=== PATIENT | female | born 1975 | race Caucasian/White ===

== ENCOUNTER 2016-09-01 06:05 | Day surgery (SDC) | payer OTHER ==
[~2016-09-01 06:05] MED LIST: DOCU-27 PO; ETHI1TAB5 PO; FURO-69 PO; IBUP-1060 PO; MULT-460 PO; NORE-81 PO; OXYC-323 PO
[2016-09-01] MEDS: IV RINGERS,LACTATED 1000ML 1,000 ML IV SCH ×2 (06:52→08:36)
[2016-09-01] MEDS ORDERED: MIDAZOLAM HCL/PF 2 MG/2 ML VIAL. ONE (06:53)
[2016-09-01] MEDS ORDERED: FAMOTIDINE 20 MG/2 ML VIAL ONE (06:53)
[2016-09-01] MEDS ORDERED: LIDOCAINE 2% PF Vial for OR 5 ML VIAL. ONE (06:53)
[2016-09-01] MEDS ORDERED: DEXAMETHASONE SOD PHOS 20 MG/5 ML VIAL. ONE (06:53)
[2016-09-01] MEDS ORDERED: PROPOFOL 20 ML IV ONE (06:53)
[2016-09-01] MEDS ORDERED: ONDANSETRON PF 4 MG/2 ML VIAL. ONE (06:53)
[2016-09-01] MEDS ORDERED: fentaNYL PF VIAL 100 MCG/2 ML VIAL ONE (06:54)
[2016-09-01] MEDS ORDERED: ROCURONIUM 50 MG/5 ML VIAL. ONE (06:54)
[2016-09-01] MEDS ORDERED: GLYCOPYRROLATE 1 MG/5 ML VIAL. ONE (06:58)
[2016-09-01] MEDS ORDERED: MORPHINE SULFATE 2 MG/ML DISP.SYRIN. IV PRN (07:00)
[2016-09-01] MEDS ORDERED: PROCHLORPERAZINE 10 MG/2 ML VIAL. IV PRN (07:00)
[2016-09-01] MEDS ORDERED: fentaNYL PF VIAL 100 MCG/2 ML VIAL IV PRN ×2 (07:00)
[2016-09-01] MEDS ORDERED: LIDOCAINE 1% 1 ML SYRINGE. ID PRN (07:00)
[2016-09-01] MEDS ORDERED: HYDROmorphone 2 MG/ML VIAL IV PRN (07:00)
[2016-09-01] MEDS ORDERED: ONDANSETRON PF 4 MG/2 ML VIAL. IV PRN (07:00)
[2016-09-01] MEDS ORDERED: SCOPOLAMINE 1.5MG PATCH. TD ONE ×2 (07:03→07:15)
[2016-09-01] MEDS ORDERED: BUPIVACAINE-EPI 0.25%-1:200000 50 ML VIAL. ONE (07:05)
[2016-09-01] MEDS ORDERED: diphenhydrAMINE 50 MG/ML VIAL ONE (07:05)
[2016-09-01 07:07] LABS: NEG OBC UR NEG; POS OBC UR POS
[2016-09-01] MEDS ORDERED: BUPIVACAINE-EPI 0.25%-1:200000 MPF 30 ML VIAL. ONE (07:25)
[2016-09-01] MEDS ORDERED: KETOROLAC 60 MG/2 ML INJ FOR OR. ONE (07:59)
[2016-09-01] MEDS ORDERED: SEVOFLURANE 16 TO 30 MINUTES. IH ONE (08:00)
--- NOTE | 2016-09-01 08:10 | DISCH ---
DISCHARGE INSTRUCTIONS Condition on Discharge Condition on Discharge: Stable Activity After Discharge Activity Instructions for Disc: Activity as tolerated Lifting Instructions after Dis: No heavy lifting Driving Instructions after Dis: Do not drive today Diet after Discharge Diet after Discharge: Regular Contacting the DRKayleigh after DC Call your doctor for: Concerns you may have Follow-Up Follow up with: Dr. Macario in 1 week. ADELINA MACARIO Jr, MD September 01, 2016 08:10
--- NOTE | 2016-09-01 08:10 | PDOC ---
BRIEF OPERATIVE NOTE Pre-Op Diagnosis Sterilization Post-Op Diagnosis SAme Procedure Performed [facility] Surgeon Dr. Macario Anesthesia Type: General Blood Loss 5 ml Specimens Obtained none Findings nml size uterus, nml fallopian tubes and ovaries ernie. Complications none Additional Remarks ptADELINA Cruz Jr, MD September 01, 2016 08:10
[2016-09-01] MEDS ORDERED: OXYC-323 PO (08:17)
[2016-09-01] MEDS ORDERED: oxyCODONE/APAP 5/325 1 TAB TABLET PO ONE ×2 (09:15→10:10)
--- NOTE | 2016-09-01 09:50 | OP ---
DATE OF SURGERY: 09/01/2016 PREOPERATIVE DIAGNOSIS: Sterilization. POSTOPERATIVE DIAGNOSIS: Sterilization. PROCEDURE: Laparoscopic BTL with Filshie clips. SURGEON: Tacos Macario MD ANESTHESIA: GETA. ESTIMATED BLOOD LOSS: Less than 5 mL. COMPLICATIONS: None. FINDINGS: Normal size uterus. Normal fallopian tubes and ovaries bilaterally. SUMMARY: A 41-year-old female who desired permanent sterilization. She was counseled on risks, benefits and expectations of bilateral tubal ligation via Filshie clips. She was also counseled on the failure rate and voiced clear understanding. The patient was counseled on risks, benefits and expectations and desired to proceed. DESCRIPTION OF PROCEDURE: The patient was taken to surgery suite and placed in dorsal lithotomy position. She was prepped with ChloraPrep for abdominal prep and Betadine for vaginal prep. After adequate anesthesia, bivalve speculum was placed vaginally. Anterior lip of the cervix grasped with a single tooth tenaculum. Uterine acorn manipulator was then placed. The bivalve speculum was removed. Attention was now placed on abdomen. Small transverse skin incision was made just below the umbilicus with the scalpel. The Veress needle was then placed through the infraumbilical incision site. The abdomen was allowed to insufflate up to 1-1/2 liters of CO2 gas. The Veress needle was then removed, 5-mm trocar was placed. The scope was positioned. The uterus appeared normal size. Fallopian tubes and ovaries appeared normal bilaterally. A second incision was made in the left lower quadrant with a scalpel in which 8 mm trocar was placed. The Filshie clip applicator was used to apply Filshie clip to the left fallopian tube in its isthmus region totally occluding the fallopian tube. Same process took place with the right fallopian tube. The trocars were then removed under direct visualization. The abdomen was allowed to deflate as much as possible along with mechanical manipulation. The 2 skin incision was reapproximated using 4-0 Vicryl suture in a subcuticular manner. A 0.25% Marcaine with epinephrine was injected at each incision site. Uterine acorn manipulator and single tooth tenaculum were removed. The patient tolerated the procedure well and was taken to recovery room in stable condition. Sponge and needle counts were correct x 3. TACOS MACARIO MD DR: ESPERANZA/david JOB#: [id number] / [id number]
[2016-09-01 10:00] VITALS: BP 101/65
== END 2016-09-01 10:27 | disposition home or self-care (01) ==
LOC: SURG 06:05
PROVIDERS: ATTEND Obstetrics & Gynecology
DX: Z30.2 Encounter for sterilization (principal); Z86.69 Personal history of other diseases of the nervous system and sense organs; M19.90 Unspecified osteoarthritis, unspecified site
CPT/HCPCS: 58671; 81025; J1100; J1200; J1885; J2250; J2405; J2704; J3010; J3490; S0028

== ENCOUNTER → 2017-06-20 | Outpatient (CLI) | payer OTHER | END | disposition home or self-care (01) | LOC: MAMMO 11:29 | DX: Z12.31 Encounter for screening mammogram for malignant neoplasm of breast (principal) | CPT/HCPCS: 77063; 77067 ==

== ENCOUNTER → 2017-07-06 | Outpatient (CLI) | payer OTHER | END | disposition home or self-care (01) | LOC: US 12:05 | DX: N63.10 Unspecified lump in the right breast, unspecified quadrant (principal) | CPT/HCPCS: 76641 ==

== ENCOUNTER 2017-09-14 07:54 | Day surgery (SDC) | payer OTHER ==
[~2017-09-14 07:54] MED LIST changes: -DOCU-27 PO; -ETHI1TAB5 PO; -FURO-69 PO; -IBUP-1060 PO; +LIDOCAINE 1% PF 2 ML VIAL. ID; +MORPHINE SULFATE 2 MG/ML DISP.SYRIN. IV; -MULT-460 PO; -NORE-81 PO; +ONDANSETRON PF 4 MG/2 ML VIAL. IV; -OXYC-323 PO; +fentaNYL PF VIAL 100 MCG/2 ML VIAL IV
[2017-09-14 08:27] LABS: ADD MAN DIFF? NO
[2017-09-14] MEDS: IV RINGERS,LACTATED 1000ML 1,000 ML IV (08:27)
[2017-09-14 08:34] LABS: BASO % 0 % (0-3); EOS # 0.1 x10^3/uL (0.0-0.7); EOS % 2 % (0-3); HEMATOCRIT 41.2 % (36.0-47.0); LYMPH # 0.9 x10^3/uL (1.0-4.8); LYMPH % 18 % (24-48); MEAN CORPUSCULAR HEMOGLOBIN 31 pg (25-35); MEAN CORPUSCULAR HGB CONC 34 g/dL (31-37); MEAN CORPUSCULAR VOLUME 92 fL (79-100); MONO # 0.5 x10^3/uL (0.0-1.1); MONO % 9 % (0-9); NEUT # 3.5 x10^3uL (1.8-7.7); NEUT % 71 % (31-73); PLATELET COUNT 175 x10^3/uL (140-400); RED CELL DISTRIBUTION WIDTH 12.4 % (11.5-14.5)
[2017-09-14 08:38] LABS: NEG OBC UR NEG; POS OBC UR POS; U PREG PATIENT NEGATIVE (NEG)
[2017-09-14 08:41] LABS: ANION GAP 11 (6-14); BLOOD UREA NITROGEN 19 mg/dL (7-20); CALCIUM 8.6 mg/dL (8.5-10.1); CARBON DIOXIDE 24 mmol/L (21-32); CHLORIDE 105 mmol/L (98-107); CREATININE 0.9 mg/dL (0.6-1.0); GLUCOSE 90 mg/dL (70-99); POTASSIUM 3.8 mmol/L (3.5-5.1); SODIUM 140 mmol/L (136-145)
[2017-09-14] MEDS: METHYLENE BLUE 1% 10 ML VIAL. IJ (09:20)
[2017-09-14] MEDS ORDERED: METHYLENE BLUE 1% 10 ML VIAL. (09:20)
[2017-09-14] MEDS: LIDOCAINE WITH 8.4% SOD BICARB 3 ML DISP.SYRIN. INJ (09:20)
[2017-09-14] MEDS ORDERED: ONDANSETRON PF 4 MG/2 ML VIAL. (09:43)
[2017-09-14] MEDS ORDERED: fentaNYL PF VIAL 100 MCG/2 ML VIAL ×2 (09:43→11:52)
[2017-09-14] MEDS ORDERED: PROPOFOL 20 ML IV (09:43)
[2017-09-14] MEDS ORDERED: MIDAZOLAM HCL/PF 2 MG/2 ML VIAL. (09:43)
[2017-09-14] MEDS ORDERED: LIDOCAINE 2% PF Vial for OR 5 ML VIAL. (09:43)
[2017-09-14] MEDS ORDERED: DEXAMETHASONE SOD PHOS 20 MG/5 ML VIAL. (09:43)
[2017-09-14] MEDS ORDERED: SEVOFLURANE 31 TO 60 MINUTES. IH (09:49)
[2017-09-14] MEDS ORDERED: GLYCOPYRROLATE 1 MG/5 ML VIAL. (10:52)
[2017-09-14] MEDS: SCOPOLAMINE 1.5MG PATCH. TD (11:47)
[2017-09-14] MEDS ORDERED: SEVOFLURANE 61 TO 120 MINUTES. IH (11:50)
[2017-09-14] MEDS ORDERED: PROCHLORPERAZINE 10 MG/2 ML VIAL. (11:52)
[2017-09-14] MEDS ORDERED: KETOROLAC 30 MG/ML INJ FOR OR. INJ (11:58)
[2017-09-14] MEDS: fentaNYL PF VIAL 100 MCG/2 ML VIAL IV ×2 (12:23→12:39)
[2017-09-14] MEDS: PROCHLORPERAZINE 10 MG/2 ML VIAL. IV (13:04)
== END 2017-09-14 13:40 | disposition home or self-care (01) ==
LOC: SURG 07:54
DX: N60.31 Fibrosclerosis of right breast (principal); G43.909 Migraine, unspecified, not intractable, without status migrainosus; M19.90 Unspecified osteoarthritis, unspecified site; Z98.890 Other specified postprocedural states; Z98.51 Tubal ligation status
CPT/HCPCS: 19125; 19281; 36415; 76098; 80048; 81025; 85025; 88305; A7015; J0690; J0780; J1100; J1885; J2001; J2250; J2405; J2704; J3010; J3490; J7120; Q9968

== ENCOUNTER → 2018-06-10 | Outpatient (CLI) | payer OTHER ==
[2017-09-14 13:30] VITALS: BP 96/51
[~2018-06-10] MED LIST changes: +DOCU-109 PO; +ETHI1TAB5 PO; +FURO-69 PO; +IBUP-1060 PO; -LIDOCAINE 1% PF 2 ML VIAL. ID; -MORPHINE SULFATE 2 MG/ML DISP.SYRIN. IV; +MULT-460 PO; +NORE-81 PO; -ONDANSETRON PF 4 MG/2 ML VIAL. IV; +OXYC1TAB15 PO; -fentaNYL PF VIAL 100 MCG/2 ML VIAL IV
[2018-06-11 08:46] LABS: CHOLESTEROL/HDL RATIO 3.1
[2018-06-11 08:52] LABS: FREE T4 0.93 ng/dL (0.76-1.46); THYROID STIM HORMONE (TSH) 1.167 uIU/mL (0.358-3.74)
== END | disposition home or self-care (01) ==
LOC: LAB 16:02
PROVIDERS: ATTEND Obstetrics & Gynecology
DX: Z01.419 Encounter for gynecological examination (general) (routine) without abnormal findings (principal)
CPT/HCPCS: 36415; 80061; 84439; 84443

== ENCOUNTER → 2020-05-03 | Outpatient (CLI) | payer OTHER ==
[2017-09-14 13:30] VITALS: BP 96/51
--- NOTE | 2020-05-03 12:46 | RAD ---
DATE: 05/03/2020 10:07 AM EXAM: DIGITAL SCREEN BILAT W/CAD HISTORY: Screening COMPARISON: 06/20/2017 Bilateral full field craniocaudal and mediolateral oblique images were obtained using digital technique. Bilateral CC and MLO implant displaced views were also obtained. This study was interpreted with the benefit of Computerized Aided Detection (CAD). FINDINGS: Breast Density: SCATTERED The breast parenchyma shows scattered fibroglandular densities. Breast parenchyma level B Partially imaged bilateral subpectoral saline implants are redemonstrated. No suspicious masses, microcalcifications or architectural distortion is present to suggest malignancy in either breast. The visualized axillae are unremarkable. IMPRESSION: No mammographic evidence of malignancy. BI-RADS CATEGORY: 1 NEGATIVE RECOMMENDED FOLLOW-UP: 12M 12 MONTH FOLLOW-UP Annual screening mammography is recommended, unless clinically indicated sooner based on symptoms or change in physical exam. PQRS compliance statement: Patient information was entered into a reminder system with a target due date for the next mammogram. Mammography is a sensitive method for finding small breast cancers, but it does not detect them all and is not a substitute for careful clinical examination. A negative mammogram does not negate a clinically suspicious finding and should not result in delay in biopsying a clinically suspicious abnormality. "Our facility is accredited by the [employer] Mammography Program."
== END ==
LOC: MAMMO 09:34
PROVIDERS: ATTEND Family Medicine
DX: Z12.31 Encounter for screening mammogram for malignant neoplasm of breast (principal)
CPT/HCPCS: 77067

== ENCOUNTER → 2021-01-04 | Outpatient (CLI) | payer OTHER ==
[2017-09-14 13:30] VITALS: BP 96/51
--- NOTE | 2021-01-04 13:27 | RAD ---
Cervical EXAMINATION: Magnetic resonance imaging (MRI) of the cervical spine without contrast 01/05/20 12:00 PM HISTORY: Cervicalgia TECHNIQUE: Multiplanar multi-weighted MRI of the cervical spine was performed without intravenous con trast using the standard cervical spine protocol. Contrast information: None administered COMPARISON: None available. FINDINGS: The alignment of the cervical spine is normal. Vertebral bodies demonstrate normal signal intensity o n all sequences. No acute fracture is identified; however, if trauma is suspected, a CT scan would b e a more sensitive examination for fractures. The craniocervical junction is normal. The visualized portions of the skull base and the posterior fossa are normal. The spinal cord demonstrates normal signal intensity on all sequences. Disc heights are maintained. Disc desiccation identified at C4-C5 and C5-C6. No soft tissue abnormality is identified. Normal sig nal voids are present in the vertebral arteries. C2-C3: The disk is normal in configuration. There is no facet arthropathy. There is no uncovertebral joint disease. There is no neuroforaminal stenosis. There is no spinal canal stenosis. C3-C4: The disk is normal in configuration. There is no facet arthropathy. There is no uncovertebral joint disease. There is no neuroforaminal stenosis. There is no spinal canal stenosis. C4-C5: The disk is normal in configuration. There is no facet arthropathy. There is no uncovertebral joint disease. There is no neuroforaminal stenosis. There is no spinal canal stenosis. C5-C6: There is a right central disc extrusion. No significant facet arthropathy. Mild uncovertebral joint disease in the right. Mild right neural foraminal stenosis. Mild spinal canal stenosis with min imal indentation the ventral cord. No cord signal alteration is identified. C6-C7: Mild disc bulge asymmetric to the left. There is no facet arthropathy. There is no uncovertebr al joint disease. There is no neuroforaminal stenosis. There is no spinal canal stenosis. C7-T1: The disk is normal in configuration. There is no facet arthropathy. There is no uncovertebral joint disease. There is no neuroforaminal stenosis. There is no spinal canal stenosis. IMPRESSION: Mild degenerative changes of the cervical spine as described in detail above. Electronically signed by: Chanel Grajeda MD (01/04/2021 1:24 PM) [facility]
== END ==
LOC: MRI 11:28
PROVIDERS: ATTEND Family Medicine
DX: M47.812 Spondylosis without myelopathy or radiculopathy, cervical region (principal); M50.223 Other cervical disc displacement at C6-C7 level; M48.02 Spinal stenosis, cervical region; M53.82 Other specified dorsopathies, cervical region
CPT/HCPCS: 72141

== ENCOUNTER → 2021-04-26 | Outpatient (CLI) | payer OTHER ==
[2017-09-14 13:30] VITALS: BP 96/51
[2021-04-26 08:29] LABS: BASO % 1 % (0-3); EOS # 0.1 x10^3/uL (0.0-0.7); EOS % 2 % (0-3); HEMATOCRIT 43.2 % (36.0-47.0); HEMOGLOBIN 14.3 g/dL (12.0-15.5); LYMPH % 23 % (24-48); MEAN CORPUSCULAR HEMOGLOBIN 31 pg (25-35); MEAN CORPUSCULAR HGB CONC 33 g/dL (31-37); MEAN CORPUSCULAR VOLUME 92 fL (79-100); MONO # 0.3 x10^3/uL (0.0-1.1); MONO % 7 % (0-9); NEUT % 67 % (31-73); PLATELET COUNT 219 x10^3/uL (140-400); RED BLOOD COUNT 4.68 x10^6/uL (3.50-5.40); RED CELL DISTRIBUTION WIDTH 12.5 % (11.5-14.5); WHITE BLOOD COUNT 4.5 x10^3/uL (4.0-11.0)
[2021-04-26 08:52] LABS: FREE T4 1.05 ng/dL (0.76-1.46); THYROID STIM HORMONE (TSH) 1.1 uIU/mL (0.358-3.74)
[2021-04-26 09:42] LABS: ALBUMIN 4.3 g/dL (3.4-5.0); ALBUMIN/GLOBULIN RATIO 1.2 (1.0-1.7); CALCIUM 8.9 mg/dL (8.5-10.1); GFR 60.2; TOTAL BILIRUBIN 0.6 mg/dL (0.2-1.0); TOTAL PROTEIN 7.9 g/dL (6.4-8.2)
[2021-04-26 20:08] LABS: FSH 5.2 mIU/mL (.); T3 TOTAL 94 ng/dL (71-180); TESTOSTERONE TOTAL 5 ng/dL (4-50); THYROXINE 7.3 ug/dL (4.5-12.0)
== END ==
LOC: LAB 07:42
PROVIDERS: ATTEND Obstetrics & Gynecology
DX: E34.9 Endocrine disorder, unspecified (principal)
CPT/HCPCS: 80053; 82306; 82670; 82681; 83001; 84403; 84436; 84439; 84443; 84480; 85025

== ENCOUNTER → 2021-06-07 | Outpatient (CLI) | payer OTHER ==
[2017-09-14 13:30] VITALS: BP 96/51
[~2021-06-07] MED LIST changes: +BARIUM SULFATE 340 GM SUSPENSION. PO ONE; +BARIUM SULFATE 60% 355 ML SUSP PO ONE
--- NOTE | 2021-06-07 16:02 | RAD ---
DG BARIUM SWALLOW Reason for study: Lump in throat.. Comparison studies: None. Technique: Esophagram was performed utilizing double contrast upright examination and single contrast prone examination. Fluoroscopic Time: 1.2 minutes Number of Fluoroscopic Images: 6 series, 436 images Findings: Patient indicates location of symptoms is at the upper cervical esophagus. The swallowing apparatus function normally. No aspiration or penetration identified. No pharyngeal le sions. No esophageal mucosal abnormalities. Normal esophageal motility. No esophageal diverticulum or hiatal hernia. Fundus of the stomach is unremarkable. No esophageal reflux despite provocative maneuvers. IMPRESSION: Normal esophagram. Electronically signed by: Luis Carlos Ngo MD (06/07/2021 3:59 PM) [id number]
== END ==
LOC: RAD 10:33
PROVIDERS: ATTEND Internal Medicine Gastroenterology
DX: R22.1 Localized swelling, mass and lump, neck (principal)
CPT/HCPCS: 74220

== ENCOUNTER → 2021-06-23 | Day surgery (SDC) | payer OTHER ==
[~2021-06-23] VITALS: Ht 175.3 cm; Wt 72.0 kg
[~2021-06-23] MED LIST changes: -BARIUM SULFATE 340 GM SUSPENSION. PO ONE; -BARIUM SULFATE 60% 355 ML SUSP PO ONE; +DEXAMETHASONE SOD PHOS 4 MG/ML VIAL ONE; +HYDROmorphone 2 MG/ML INJ. IVP PRN; +IV RINGERS,LACTATED 1000ML 1,000 ML IV SCH; +LIDOCAINE 2% PF 5 ML VIAL. ONE; +MORPHINE SULFATE 2 MG/ML INJ. IVP PRN; +ONDANSETRON PF 4 MG/2 ML VIAL. ONE; +PROCHLORPERAZINE 10 MG/2 ML VIAL. IVP PRN; +PROPOFOL 10 MG/ML (20ML) VIAL. IV ONE; +TEMA30CA PO; +fentaNYL PF VIAL 100 MCG/2 ML VIAL IVP PRN
[2021-06-23 08:39] VITALS: BP 109/54
[2021-06-23 10:25] VITALS: BP 100/56
--- NOTE | 2021-06-24 18:08 | PATHOLOGY ---
[facility] Accession Number: [id number] . 01 Material submitted: . PART A: small bowel - SMALL BOWEL BIOPSY PART B: stomach - ANTRUM AND BODY BIOPSY PART C: esophagus - DISTAL ESOPHAGUS BIOPSY. Modifiers: distal PART D: esophagus - MID ESOPHAGUS BIOPSY. Modifiers: mid . 01 Clinical history: . DYSPHAGIA/LUMP ON THROAT EGD HIATAL HERNIA/INFLAMMATION/ESOPHAGITIS . 02 Diagnosis: A. Small bowel biopsies: - No diagnostic abnormalities. . B. Gastric biopsies, gastric body and antrum: - Congestion and mild chronic inflammation. . C. Esophageal biopsies, distal esophagus: - Reflux changes. . D. Esophageal biopsies, middle esophagus: - Segments of focally mildly hyperplastic squamous esophageal mucosa. . (JPM:burt; 06/24/2021) [facility] 06/24/2021 1358 Local . 02 Comment: Sections of the small bowel biopsy reveal segments of duodenal and small intestine mucosa. Where best oriented, the mucosal villi show no sprue-like changes or significant inflammatory changes. . Sections of the gastric biopsy reveal segments of gastric body and antral/body transition mucosa. The gastric body mucosa shows congestion and minimal chronic inflammation. The antral/body transition mucosa shows congestion and mild chronic inflammation. A properly controlled immunoperoxidase stain for Helicobacter is negative for Helicobacter organisms. . Sections of the distal esophageal biopsy reveal segments of hyperplastic squamous esophageal mucosa with contiguous and separate segments of gastric mucosa showing mild chronic inflammation. The findings are consistent with reflux changes. There is no evidence of Smith's change, dysplasia, or malignancy. . Sections of the middle esophageal biopsy reveal segments of tangentially oriented and focally mildly hyperplastic squamous esophageal mucosa. . (STEVENM:burt; 06/24/2021) . . Special stain performed: Immunoperoxidase stain for Helicobacter on B1 Electronically signed: . Deyvi Houser MD, Pathologist NPI- [id number] . 01 Gross description: . A. The specimen is received in formalin, labeled "Catherine Diseron, small bowel biopsy". Received are four segments of pale rivas tissue ranging in size from 0.3-0.5 cm in maximum dimensions. The specimen is submitted entirely in cassette A1. . B. The specimen is received in formalin, labeled "Catherine Diseron, antrum and body biopsy". Received are four segments of pale rivas tissue ranging in size from 0.3-0.5 cm in maximum dimensions. The specimen is submitted entirely in cassette B1. . C. The specimen is received in formalin, labeled "Catherine Diseron, distal esophagus biopsy". Received are four segments of pale rivas tissue ranging in size from 0.2-0.5 cm in maximum dimensions. The specimen is submitted entirely in cassette C1. . D. The specimen is received in formalin, labeled "Catherine Diseron, mid esophagus biopsy". Received are two segments of pale rivas tissue measuring 0.2 and 0.5 cm in maximum dimensions. The specimen is submitted entirely in cassette B1. (CAA; 06/23/2021) QAC/QAC 06/23/2021 1545 Local . 02 Pathologist provided ICD-10: K29.50, R13.10 . 02 CPT . 033111, [id number], 336870, 210462, Q32802 Specimen Comment: A courtesy copy of this report has been sent to [phone], [phone] Specimen Comment: [id number] Specimen Comment: Report sent to / DR VERDIN Performed at: [facility] [address], [place] [id number] MD Kwame Hunter MD Phone: [phone] Performed at: [facility] [address], [place] [id number] MD Deyvi Houser MD Phone: [phone]
== END | disposition home or self-care (01) ==
LOC: SURG 08:13
PROVIDERS: ATTEND Internal Medicine Gastroenterology
DX: R13.10 Dysphagia, unspecified (principal); K29.50 Unspecified chronic gastritis without bleeding; K21.00 Gastro-esophageal reflux disease with esophagitis, without bleeding; K44.9 Diaphragmatic hernia without obstruction or gangrene; K31.89 Other diseases of stomach and duodenum; M19.90 Unspecified osteoarthritis, unspecified site; Z79.899 Other long term (current) drug therapy; Z98.51 Tubal ligation status; Z98.890 Other specified postprocedural states
CPT/HCPCS: 43239; 43450; 81025; J1100; J2405; J2704; 88305; 88342

== ENCOUNTER → 2021-08-08 | Outpatient (CLI) | payer OTHER ==
[2021-06-23 10:25] VITALS: BP 100/56
[~2021-08-08] MED LIST changes: -DEXAMETHASONE SOD PHOS 4 MG/ML VIAL ONE; -HYDROmorphone 2 MG/ML INJ. IVP PRN; -IV RINGERS,LACTATED 1000ML 1,000 ML IV SCH; -LIDOCAINE 2% PF 5 ML VIAL. ONE; -MORPHINE SULFATE 2 MG/ML INJ. IVP PRN; -ONDANSETRON PF 4 MG/2 ML VIAL. ONE; -PROCHLORPERAZINE 10 MG/2 ML VIAL. IVP PRN; -PROPOFOL 10 MG/ML (20ML) VIAL. IV ONE; -fentaNYL PF VIAL 100 MCG/2 ML VIAL IVP PRN
[2021-08-09 01:24] LABS: FSH 9.8 mIU/mL (.); TESTOSTERONE TOTAL 153 ng/dL (4-50)
== END ==
LOC: LAB 10:01
PROVIDERS: ATTEND Obstetrics & Gynecology
DX: E34.9 Endocrine disorder, unspecified (principal)
CPT/HCPCS: 36415; 82670; 83001; 84403